=== PATIENT | female | born 1990 | race African-American/Black ===

== ENCOUNTER 2024-02-12 17:54 | Emergency (ER) | payer SELFPAY ==
[~2024-02-12] VITALS: Ht 167.6 cm; Wt 84.0 kg
[2024-02-12 18:12] VITALS: TEMP 98.7; O2SAT 98
[2024-02-12 22:26] VITALS: BP 125/85; PULSE 93; RESP 18
== END 2024-02-12 22:28 | disposition home or self-care (01) ==
LOC: ER 17:54
DX: F10.129 Alcohol abuse with intoxication, unspecified (principal); Y90.9 Presence of alcohol in blood, level not specified
CPT/HCPCS: 99283